=== PATIENT | female | born 1950 | race Caucasian/White ===

== ENCOUNTER 2019-06-13 21:55 | Emergency (ER) | payer OTHER ==
[~2019-06-13] VITALS: Ht 154.9 cm; Wt 61.2 kg
[2019-06-13] MEDS ORDERED: METFORMIN HCL500 M3 PO (22:11)
[2019-06-13] MEDS ORDERED: PRINIVIL10 MG PO (22:12)
[2019-06-13] MEDS ORDERED: ATORVASTATIN CA20 MG PO (22:12)
[2019-06-13] MEDS ORDERED: ASPIR 8181 M1 PO (22:13)
[2019-06-13] MEDS ORDERED: HYDROCODON-ACE1 EAC8 PO (23:32)
[2019-06-13 23:51] VITALS: BP 91/52
== END 2019-06-13 23:52 | disposition home or self-care (01) ==
LOC: M.ERS 21:55
DX: S52.592A Other fractures of lower end of left radius, initial encounter for closed fracture (principal); I10 Essential (primary) hypertension; E11.9 Type 2 diabetes mellitus without complications; E78.00 Pure hypercholesterolemia, unspecified; W10.9XXA Fall (on) (from) unspecified stairs and steps, initial encounter; Y92.89 Other specified places as the place of occurrence of the external cause; Y93.89 Activity, other specified; Y99.8 Other external cause status